=== PATIENT | male | born 1985 | race Caucasian/White ===

== ENCOUNTER 2016-11-10 12:46 | Emergency (ER) | payer BC ==
[~2016-11-10] VITALS: Ht 162.6 cm; Wt 83.9 kg
[~2016-11-10 12:46] MED LIST: ALLERGY RELIEF180 MG; BACTRIM 400-801 TA1 PO; BACTRIM DS TABL1 TA2; CLEOCIN HCL300 M1 PO; KEFLEX500 MG PO; LODINE400 MG PO; LORTAB 7.51 TAB PO; NASOCORT INH; PAIN RELIEF325 MG PO; ZYRTEC PO
== END 2016-11-10 14:02 | disposition home or self-care (01) ==
LOC: SED 12:46
DX: L02.31 Cutaneous abscess of buttock (principal); F17.210 Nicotine dependence, cigarettes, uncomplicated; Z79.899 Other long term (current) drug therapy
CPT/HCPCS: 99282